=== PATIENT | male | born 1965 | race Caucasian/White ===

== ENCOUNTER → 2017-02-08 | Outpatient (CLI) | payer MEDICARE, MEDICAID ==
[~2017-02-08] MED LIST: ALBU17IN INH; ALBUPOW9 INH; ASPI1TAB PO; ATOR40TA75 PO; BACT800T5 PO; Bisoprolol PO; CIAL10TA PO; D 202000 PO; GLUC500T PO; IBUP200T2 PO; IPRASOL4 NEB; JANU100T PO; LOSA100T PO; METF500T13 PO; OMEP20CA3 PO; OMEP20TA PO; ROXI1TAB2 PO; SOMA250T PO; TOPA50TA PO; TYLE650T25 PO; ZOCO20TA PO; ZOLO50TA PO
[2017-02-08 19:26] LABS: BLOOD UREA NITROGEN 18 MG/DL (7-18); CREATININE FOR GFR 0.96 MG/DL (0.70-1.30); GLOMERULAR FILTRATION RATE > 60.0 (>56)
== END ==
LOC: M LAB 17:38
PROVIDERS: ATTEND Otolaryngology
DX: J31.0 Chronic rhinitis (principal); J32.0 Chronic maxillary sinusitis; H90.3 Sensorineural hearing loss, bilateral

== ENCOUNTER → 2017-02-08 | Outpatient (CLI) | payer MEDICARE, MEDICAID ==
--- NOTE | 2017-02-08 18:55 | REP ---
CT IACS WITHOUT CONTRAST: HISTORY: Sensory neural hearing loss. The internal auditory canals cochlea, vestibules, and semicircular canals were normal in appearance. The ossicles are normal in configuration and position. The scutum are intact. There are areas of dehiscence in the tegmen . The middle ear cavities and left mastoid air cells are clear. Minimal mucosal thickening is present in the right mastoid air cells. Mucosal thickening is present in the left maxillary sinus. The nasopharynx is normal in appearance. IMPRESSION:Minimal right mastoid mucosal thickening. Signed by Andi Mosher MD 02/08/2017 06:58 P
--- NOTE | 2017-02-08 19:00 | REP ---
MAXILLOFACIAL CT WITHOUT CONTRAST: HISTORY: Chronic maxillary sinusitis. A right Sultana cell is present. Minimal mucosal thickening is present in the ethmoid and left maxillary sinuses. The remaining sinuses are clear. The osteomeatal units are patent. The middle and inferior nasal turbinates are partially paradoxical. There is minimal deviation of the nasal septum to the left. The cribriform, plate, medial patterson of the orbits and optic canals are intact. The carotic canals form a segment of the posterolateral patterson of the sphenoid sinus. The sphenoid sinus septum inserts into the left internal carotid canal wall. IMPRESSION: Sinus mucosal thickening as described above. Signed by Andi Mosher MD 02/08/2017 07:09 P
== END ==
LOC: M RAD 16:51
PROVIDERS: ATTEND Otolaryngology
DX: J31.0 Chronic rhinitis (principal); H90.3 Sensorineural hearing loss, bilateral

== ENCOUNTER → 2019-09-23 | Outpatient (CLI) | payer MEDICARE, OTHER ==
[~2019-09-23] MED LIST changes: -ASPI1TAB PO; +ASPI81TA26 PO; +IPRA0.00 NEB; -IPRASOL4 NEB; +OMEP-358 PO; -OMEP20TA PO
[2019-09-23 13:05] LABS: INR 1.02; PROTHROMBIN TIME 13.1 SECONDS (11.8-14.0)
[2019-09-23 13:36] LABS: ALBUMIN 3.8 GM/DL (3.2-5.2); ALT/SGPT 58 U/L (12-78); BILIRUBIN,DIRECT 0.2 MG/DL (0.0-0.2); BILIRUBIN,TOTAL 0.6 MG/DL (0.2-1.0); IRON (FE) 97 UG/DL (65-175); PERCENT SATURATION 19.3 % (19.7-50.0); TOTAL IRON BINDING CAPACITY 503 UG/DL (250-450); TOTAL PROTEIN 7.2 GM/DL (6.4-8.2)
[2019-09-23 13:38] LABS: HEPATITIS B SURFACE ANTIGEN NEGATIVE (NEGATIVE)
[2019-09-23 14:06] LABS: HEPATITIS B CORE ANTIBODY IGM NEGATIVE (NEGATIVE); HEPATITIS C VIRUS ABY INDEX 0.3 INDEX (<0.8)
[2019-09-23 14:08] LABS: HEPATITIS A ANTIBODY IGM NEGATIVE (NEGATIVE)
[2019-09-26 00:07] LABS: ANCA-ATYPICAL <1:20 titer (Neg:<1:20); ANTI DOUBLE STRAND-DNA AB 25 IU/mL (0-9); ANTI-MITOCHONDRIAL ANTIBODY <20.0 Units (0.0-20.0); ANTINUCLEAR ANTIBODIES DIRECT Positive (Negative); CYTOPLASMIC NEUTROP AB ANCA-C <1:20 titer (Neg:<1:20); LIVER-KIDNEY MICROSOMAL ABY <20.1 Units (0.0-20.0); PERINUCLEAR AB ANCA-P <1:20 titer (Neg:<1:20); RNP ANTIBODIES <0.2 AI (0.0-0.9); SJOGREN'S ANTI SS-A <0.2 AI (0.0-0.9); SJOGREN'S ANTI SS-B <0.2 AI (0.0-0.9); SMITH ANTIBODIES <0.2 AI (0.0-0.9); TISSUE TRANSGLUTAMINASE IgA <2 U/mL (0-3)
== END ==
LOC: M LAB 11:56
PROVIDERS: ATTEND Internal Medicine Gastroenterology
DX: R94.5 Abnormal results of liver function studies (principal); Z79.899 Other long term (current) drug therapy

== ENCOUNTER → 2019-12-03 | Outpatient (CLI) | payer MEDICARE, OTHER ==
[~2019-12-03] MED LIST changes: +ALBU83IN INH; +D31000TA2 PO
== END ==
LOC: M LABSMTC 11:20
PROVIDERS: ATTEND Anesthesiology
DX: Z01.812 Encounter for preprocedural laboratory examination (principal)

== ENCOUNTER 2019-12-08 10:45 | Day surgery (SDC) | payer MEDICARE ==
[~2019-12-08] VITALS: Ht 185.4 cm; Wt 106.6 kg
[2019-12-08] MEDS ORDERED: LIDOCAINE 2% 100MG/5ML SDV (FOR ANES.) As Ordered ONE (12:25)
[2019-12-08] MEDS ORDERED: propofoL 200 MG/20 ML VIAL As Ordered ONE (12:25)
--- NOTE | 2020-01-20 11:31 | ROOR ---
Patient Name: Indio Rodgers Procedure Date: 12/08/2019 11:25 AM Date of : 1965 Age: 54 [facility] Gender[facility] Note Status: Finalized Procedure: Colonoscopy Indications: Screening for colorectal malignant neoplasm Providers: Nick CELESTIN MD Referring MD: Anum Carey Requesting Provider: Medicines: Monitored Anesthesia Care Complications: No immediate complications. Procedure: Pre-Anesthesia Assessment: - The heart rate, respiratory rate, oxygen saturations, blood pressure, adequacy of pulmonary ventilation, and response to care were monitored throughout the procedure. The Colonoscope was introduced through the anus and advanced to 6 cm into the ileum. The colonoscopy was performed without difficulty. The patient tolerated the procedure well. The quality of the bowel preparation was good. Findings: The perianal and digital rectal examinations were normal. Five sessile polyps were found in the rectum, sigmoid colon and ascending colon. The polyps were small in size. These polyps were removed with a cold snare. Resection and retrieval were complete. Mild sigmoid diverticulosis and small internal hemorrhoids. The exam was otherwise without abnormality on direct and retroflexion views. Impression: - Five small polyps in the rectum, in the sigmoid colon and in the ascending colon, removed with a cold snare. Resected and retrieved. - Mild sigmoid diverticulosis and small internal hemorrhoids. - The examination was otherwise normal on direct and retroflexion views. Recommendation: - If the pathology report reveals adenomatous tissue, then repeat the colonoscopy for surveillance in 3 - 5 years. - Telephone endoscopist for pathology results in 2 weeks. Nick Celestin MD Nick CELESTIN MD 12/08/2019 12:05:01 PM Number of Addenda: 0 Note Initiated On: 12/08/2019 11:25 AM Estimated Blood Loss: Estimated blood loss: none.
== END 2019-12-08 12:38 | disposition home or self-care (01) ==
LOC: M OPP 10:45
PROVIDERS: ATTEND Internal Medicine Gastroenterology
DX: K63.5 Polyp of colon (principal); K62.1 Rectal polyp; K22.8 Other specified diseases of esophagus; K22.70 Barrett's esophagus without dysplasia; K21.9 Gastro-esophageal reflux disease without esophagitis; R19.4 Change in bowel habit; J44.9 Chronic obstructive pulmonary disease, unspecified; E11.9 Type 2 diabetes mellitus without complications; Z88.5 Allergy status to narcotic agent; Z88.8 Allergy status to other drugs, medicaments and biological substances

== ENCOUNTER 2023-03-29 08:48 | Day surgery (SDC) | payer MEDICARE, MEDICAID ==
[~2023-03-29] VITALS: Ht 185.4 cm; Wt 93.4 kg
[~2023-03-29 08:48] MED LIST changes: +ALBU2.5V10 INH; -ALBU83IN INH; +BISO5TAB14 PO; -D31000TA2 PO; +IBUP200C29 PO; +JARD1TAB PO; +NS 1,000 ML IV ONE; +TRUL10IN SC; +VITA100093 PO
[2023-03-29] MEDS ORDERED: LIDOCAINE 2% 100MG/5ML SDV (FOR ANES.) As Ordered ONE (09:19)
[2023-03-29] MEDS ORDERED: propofoL 200 MG/20 ML VIAL As Ordered ONE (09:19)
[2023-03-29] MEDS ORDERED: fentaNYL 100 MCG/2 ML INJECTION As Ordered ONE (09:19)
[2023-03-29 10:45] VITALS: TEMP 97.1
[2023-03-29 11:05] VITALS: BP 109/64; O2SAT 98
== END 2023-03-29 11:07 | disposition home or self-care (01) ==
LOC: M OPP 08:48
PROVIDERS: ATTEND Internal Medicine Gastroenterology
DX: K20.90 Esophagitis, unspecified without bleeding (principal); Z87.19 Personal history of other diseases of the digestive system; I25.10 Atherosclerotic heart disease of native coronary artery without angina pectoris; I25.2 Old myocardial infarction; E11.9 Type 2 diabetes mellitus without complications; I10 Essential (primary) hypertension; J44.9 Chronic obstructive pulmonary disease, unspecified; Z95.5 Presence of coronary angioplasty implant and graft; Z79.899 Other long term (current) drug therapy; E78.00 Pure hypercholesterolemia, unspecified; Z79.84 Long term (current) use of oral hypoglycemic drugs; Z79.82 Long term (current) use of aspirin; F17.210 Nicotine dependence, cigarettes, uncomplicated
CPT/HCPCS: 43239; 88305; J3010